=== PATIENT | female | born 1955 | race Caucasian/White ===

== ENCOUNTER → 2020-02-13 | Outpatient (CLI) | payer OTHER ==
[~2020-02-13] MED LIST: FLEXERIL PO; LEVOTHYROXIN0.088 MG PO; METFORMIN HCL500 MG PO; NORCO 5-325 TA1 EACH PO; VITAMIN D1000 UNI1 PO
== END ==
LOC: M.RAD 14:01
PROVIDERS: ATTEND Family Medicine
DX: Z13.820 Encounter for screening for osteoporosis (principal); M85.88 Other specified disorders of bone density and structure, other site; E03.9 Hypothyroidism, unspecified; E28.39 Other primary ovarian failure; Z78.0 Asymptomatic menopausal state